=== PATIENT | male | born 1975 | race Caucasian/White ===

== ENCOUNTER → 2020-12-01 03:30 | Outpatient (CLI) | payer BC, SELFPAY ==
[2020-12-02 01:23] LABS: SARS-CoV-2 RNA PCR Negative
== END ==
PROVIDERS: PCP Physician Assistant Medical; Visit Provider Internal Medicine Gastroenterology
DX: Z01.812 Encounter for preprocedural laboratory examination (principal); Z20.822 Contact with and (suspected) exposure to COVID-19
CPT/HCPCS: C9803; U0003; U0005

== ENCOUNTER 2020-12-04 01:40 | Day surgery (SDC) | payer BC, SELFPAY ==
[2020-11-26 10:35] VITALS: BMI 25.1
[2020-12-04 10:03] VITALS: BP 114/85; PULSE 90; RESP 18; TEMP 36.1; O2SAT 100; BMI 24.3
[2020-12-04] MEDS: LACTATED RINGERS 1,000 ML 150 ML IV CONT (10:17)
--- NOTE | 2020-12-04 10:34 | WPDGICN ---
Assessment and Plan Assessment and plan (1) Nausea & vomiting: Code(s): R11.2 - Nausea with vomiting, unspecified Status: Acute Assessment and Plan: Patient with complains of frequent nausea vomiting for this reason EGD will be performed. Suspect this may be functional in nature. Trial of antacids appears prudent. Further recommendations will be given after endoscopy. (2) Diarrhea: Code(s): R19.7 - Diarrhea, unspecified Status: Acute Assessment and Plan: Patient has longstanding history of loose stools after eating. Suspect functional disease. Because of the chronicity of his symptoms a colonoscopy will be performed. Further recommendations will be given after endoscopy. GI Consult Note Consult date/time: 12/04/20 10:34 HPI: Geoffrey Marshall is a 44 year old male Presents for GI endoscopy. Patient reports that for several years he has had nausea vomiting and diarrhea. He has tried no specific medications to alleviate these symptoms. He reports diarrhea on almost a daily basis this is happened typically after eating. Typically has watery stools. He states that is very rare that he has a normal stool. He denies any fever. He denies any blood in his stools. He has never tried Kaopectate or Imodium. He states he had briefly tried fiber supplements several years ago but not for very long. He does not remember any change in his symptoms. His family history is noncontributory. Additionally patient complains of nausea vomiting. His states he will vomit in the evening shortly after eating. This occurs 2 or 3 times a week. Typically is just liquid but recur turns. He has never tried antacids. Additionally patient complains of back aches. Different body aches. Not particularly related to his bowel habits nor oral intake. Review of Systems Review of Systems: All systems reviewed & are unremarkable except as noted in HPI and below PMFSH Past Medical History Medical History (Updated 11/20/20 @ 10:10 by EDGAR Escalante) Diarrhea Nausea & vomiting Tobacco abuse Social History Social History (Updated 11/20/20 @ 09:07 by Maribell Garza CMA) Smoking packs per day: 1 Smoking cigarettes per day: 20.0 Smoking status: Current every day smoker Tobacco type: cigarettes Alcohol intake: current Drinks per week: 4 Alcohol use details: Beer Substance use: never Substance use type: does not use Living arrangements: with family Gender identity (if verbalized by the patient): Male Meds Home Medications and Allergies Home Medications Medication Instructions Recorded Confirmed Type No Home Medications 11/20/20 12/04/20 History Allergies Allergy/AdvReac Type Severity Reaction Status Date / Time No Known Allergies Allergy Verified 12/04/20 10:02 Vital Signs Vital Signs - 24 hr 12/04/20 10:03 Temperature 96.9 F L Pulse Rate 90 Respiratory Rate 18 Blood Pressure 114/85 Pulse Oximetry 100 Exam Narrative: Physical exam reveals patient be alert. Vital signs stable. HEENT exam is unremarkable. Patient is anicteric. Lungs are clear to auscultation and percussion. Heart is without murmur or extra sounds. Abdominal exam bowel sounds present soft nontender with no hepatosplenomegaly. Digital external rectal exam is normal.
--- NOTE | 2020-12-04 10:39 | P.PNAN_ITS ---
Anes - Initial Pre Proc Eval Procedure: Operation Date: 12/04/20 10:45 Proposed Procedures p Esophagogastroduodenoscopy & Colonoscopy - Eze De La Cruz MD Date/Time: 12/04/20 10:39 Surgeon: Eze De La Cruz MD Pre Op Diagnosis: diarrhea R19.7, nausea/vomiting R11.2 Patient Data Age: 44 Gender: M Height: 1.75 m Weight: 74.7 kg Last Vital Signs Temp 96.9 F L 12/04/20 10:03 Pulse 90 12/04/20 10:03 Resp 18 12/04/20 10:03 BP 114/85 12/04/20 10:03 Pulse Ox 100 12/04/20 10:03 Allergies Allergy/AdvReac Type Severity Reaction Status Date / Time No Known Allergies Allergy Verified 12/04/20 10:02 Home Medications Medication Instructions Recorded Confirmed Type No Home Medications 11/20/20 12/04/20 History Patient hx anesthesia problems: none Family hx anesthesia problems: none [facility] Past Medical History Medical History (Updated 11/20/20 @ 10:10 by ISABELA EscalanteN-C) Diarrhea Nausea & vomiting Tobacco abuse Social History Social History (Updated 11/20/20 @ 09:07 by Maribell Garza CMA) Smoking packs per day: 1 Smoking cigarettes per day: 20.0 Smoking status: Current every day smoker Tobacco type: cigarettes Alcohol intake: current Drinks per week: 4 Alcohol use details: Beer Substance use: never Substance use type: does not use Living arrangements: with family Gender identity (if verbalized by the patient): Male Anes - Eval Final PreProcedure Day of Procedure 12/04/20 10:39 Patient weight: normal Heart: regular rate and rhythm Lungs: clear to auscultation Airway: Mallampati scale class II Neurological: alert and oriented Last oral intake: >/= 8 hours ASA classification: II Emergent: no Anesthetic plan: proceed Anesthesia type and monitoring: general GIVS and standard monitoring Informed Consent: The patient's anesthetic plan and its attendant risks and benefits were discussed with the patient/family/POA. Questions were solicited and answers provided to the satisfaction of the patient/family/POA.
[2020-12-04 11:38] VITALS: BP 95/65; PULSE 80; RESP 20; O2SAT 96
[2020-12-04 11:48] VITALS: BP 95/64; PULSE 81; RESP 22; O2SAT 96
[2020-12-04 11:58] VITALS: BP 119/75; PULSE 70; RESP 18; O2SAT 100
[2020-12-04 12:08] VITALS: BP 119/84; PULSE 65; RESP 23; O2SAT 100
== END 2020-12-04 12:25 | disposition home or self-care (01) ==
PROVIDERS: PCP Physician Assistant Medical; Visit Provider Internal Medicine Gastroenterology
PROC: 0DJ08ZZ Inspection of Upper Intestinal Tract, Via Natural or Artificial Opening Endoscopic (ICD-10-PCS; CPT 43235; principal; 2020-12-04 10:45)
DX: R19.7 Diarrhea, unspecified (principal); R11.2 Nausea with vomiting, unspecified; K52.9 Noninfective gastroenteritis and colitis, unspecified; K63.5 Polyp of colon; K21.9 Gastro-esophageal reflux disease without esophagitis; K64.8 Other hemorrhoids; F17.210 Nicotine dependence, cigarettes, uncomplicated
CPT/HCPCS: 45385; 45380; 43239; 87081; 88305; 88313; J2704; J7120

== ENCOUNTER 2021-07-22 14:11 | Outpatient (CLI) | payer BC, SELFPAY ==
--- NOTE | ~2021-07-22 | CT_ITS ---
EXAMINATION: CT abdomen pelvis wo/w con DATE: 07/22/2021 15:03 INDICATION: Prostatitis, Chronic TECHNIQUE: Computed tomography (CT) of the abdomen and pelvis was performed without and with with 100 mL Omnipaque-350 intravenous contrast. Automated exposure control was employed. The dose-length prod uct was 897.58 mGy-cm. COMPARISON: 04/07/2017. FINDINGS: Lower thorax: Unremarkable. Liver: Normal. Biliary/Gallbladder: Gallbladder is absent. No bile duct dilation. Spleen: Normal. Pancreas: No mass or duct dilation. Adrenals:No mass. Kidneys: No mass, stone, or hydronephrosis. GI tract: Distal esophageal and gastric wall edema as can be seen in esophagitis/gastritis. Water den sity wall edema in the descending and sigmoid colon. No small or large bowel dilation. Normal appendi x. Mesentery/Peritoneum: No ascites, mass, or free air. Retroperitoneum: No mass. Pelvis: Pelvic organs are within normal limits. Bones/Soft Tissues: Soft tissues and body wall unremarkable. No acute osseous finding. Additional Findings: None. IMPRESSION: Stable descending and sigmoid colon wall edema as can be seen with infectious/inflammatory colitis. N o acute abdominopelvic process. Reviewed, dictated and finalized at location K. IMPRESSION: Stable descending and sigmoid colon wall edema as can be seen with infectious/i nflammatory colitis. No acute abdominopelvic process.
--- NOTE | ~2021-07-22 | XR_ITS ---
EXAM: XR abdomen/kub 1V HISTORY: PROSTATITIS COMPARISON: CT abdomen and pelvis 07/22/2021 FINDINGS: Clear lung bases. Cholecystectomy clips. Normal bowel gas pattern. No organomegaly. Arteri al and venous calcifications project over the pelvis. Regional bones and soft tissues normal for age. IMPRESSION: No acute obstruction or ileus. Reviewed, dictated and finalized at location K.
== END 2021-07-22 14:12 ==
LOC: MICIMG 14:13
PROVIDERS: Visit Provider Nurse Practitioner Adult Health
DX: N41.1 Chronic prostatitis (principal)
CPT/HCPCS: 74018; 74178; Q9967

== ENCOUNTER 2021-08-25 07:57 | Outpatient (CLI) | payer BC, SELFPAY ==
--- NOTE | ~2021-08-25 | XR_ITS ---
SMALL BOWEL SERIES ONLY INDICATION: Diarrhea. Right lower quadrant pain. TECHNIQUE: Serial plain films and fluoroscopic spot films are performed following oral demonstration of thin barium. COMPARISON: CT dated 07/22/2021 FINDINGS: Barium was followed sequentially through the small bowel. The mucosal pattern is unremarka ble. There is segmentation and flocculation of barium in the proximal small bowel. No evidence for st ricture, polyp, diverticula or obstruction of flow of contrast. Transit time is normal. IMPRESSION: 1: Segmentation and flocculation of barium in the proximal small bowel, suspicious for malabsorption syndrome. Reviewed, dictated and finalized at location A. IMPRESSION: 1: Segmentation and flocculation of barium in the proximal small bowel, suspic ious for malabsorption syndrome.
== END 2021-08-25 07:58 | disposition home or self-care (01) ==
LOC: ANHIMG 07:59
PROVIDERS: PCP Physician Assistant Medical; Visit Provider Nurse Practitioner Family
DX: R19.7 Diarrhea, unspecified (principal); R10.31 Right lower quadrant pain
CPT/HCPCS: 74250

== ENCOUNTER 2021-09-04 15:29 | Outpatient (CLI) | payer BC, SELFPAY ==
[2021-09-04 16:09] LABS: Hematocrit 50.6 % (42.0-52.0); Hemoglobin 16.5 g/dL (14.0-18.0); Mean Corpuscular HGB Conc 32.6 g/dl (32-36); Mean Corpuscular Hemoglobin 32.9 pg (26-34); Mean Corpuscular Volume 100.8 fl (80-100); Mean Platelet Volume 10.3 fl (7.4-10.4); Platelet Count Result 293 k/mm3 (150-375); Red Blood Count 5.02 M/mm3 (4.6-6.20); Red Cell Distribution Width 13.3 % (11.5-14.5)
[2021-09-04 16:39] LABS: Iron 73 ug/dL (49-181)
[2021-09-04 16:44] LABS: Alanine Aminotransferase 18 U/L (6-50); Albumin Level 4.3 g/dL (3.5-5.1); Alkaline Phosphatase 81 U/L (38-126); Anion Gap 7 mmol/L (8-16); Aspartate Amino Transferase 27 U/L (17-59); Bilirubin,Total 0.5 mg/dL (0.2-1.3); Blood Urea Nitrogen 11 mg/dL (9-20); Calcium 8.8 mg/dL (8.4-10.2); Carbon Dioxide 27 mmol/L (22-30); Chloride 109 mmol/L (98-107); Estimated Glomerular Filt Rate > 60; Glucose 115 mg/dL (65-110); Potassium 3.6 mmol/L (3.4-5.0); Sodium 143 mmol/L (137-145)
[2021-09-04 17:11] LABS: Percent Iron Saturation 20 % (20-50)
[2021-09-04 18:29] LABS: Folic Acid 5.5 ng/mL (2.76->20)
[2021-09-11 13:54] LABS: ANCA Screen Negative (Negative); Myeloperoxidase Ab <1.0 AI (<1.0); Proteinase-3 Ab <1.0 AI (<1.0); S cerevisiae Ab (IgA) 13.1 U (<=20.0); S cerevisiae Ab (IgG) 12.5 U (<=20.0)
[2021-09-13 15:26] LABS: Pancreatic Elastase, Stool 342 mcg/g
[2021-10-07 09:36] LABS: Gliadin AB, IgG <1.0 U/mL (<15.0); TTG IGA AB <1.0 U/mL (<15.0)
== END 2021-09-04 15:30 | disposition home or self-care (01) ==
LOC: ANHLAB 15:31
PROVIDERS: PCP Physician Assistant Medical; Visit Provider Nurse Practitioner Family
DX: R11.2 Nausea with vomiting, unspecified (principal); R19.7 Diarrhea, unspecified; R93.89 Abnormal findings on diagnostic imaging of other specified body structures
CPT/HCPCS: 36415; 80053; 82607; 82653; 82728; 82746; 83516; 83540; 83550; 85027; 86036; 86140; 86255; 86671

== ENCOUNTER 2021-09-05 11:36 | Outpatient (CLI) | payer BC, SELFPAY ==
[2021-09-10 19:51] LABS: Fecal Fat, Ql Normal (Normal)
[2021-09-14 21:57] LABS: Calprotectin, Stool 59 mcg/g
== END 2021-09-05 11:37 | disposition home or self-care (01) ==
LOC: ANHLAB 11:38
PROVIDERS: PCP Physician Assistant Medical; Visit Provider Nurse Practitioner Family
DX: R11.2 Nausea with vomiting, unspecified (principal); R19.7 Diarrhea, unspecified; R93.89 Abnormal findings on diagnostic imaging of other specified body structures
CPT/HCPCS: 82705; 83993

== ENCOUNTER 2022-05-06 13:35 | Outpatient (CLI) | payer BC, SELFPAY ==
--- NOTE | ~2022-05-06 | CT_ITS ---
Non-contrast CT scan of the Abdomen and Pelvis Clinical indication: Abdominal pain Technique: 5 mm axial scans were obtained through the abdomen and pelvis without intravenous or oral contrast. Dose reduction technique was used on this scan by utilizing automated exposure control and iterative reconstruction technique. The dose-length product (DLP) was 346.01 mGy-cm. COMPARISON: 07/22/2021 Findings: Images through the lung bases reveal no abnormalities. There is no evidence of renal or ureteral calculi. The kidneys and the ureters are nondilated. The liver, spleen, pancreas, and adrenals appear normal. Cholecystectomy clips are present. There is no aortic aneurysm. There is no evidence of bowel obstruction. Normal appendix. Images through the pelvis were performed. There is no evidence of ascites or lymphadenopathy. Urinary bladder unremarkable. Prostate gland and seminal vesicles are unremarkable. Impression: No significant abnormality seen. Reviewed, dictated and finalized at [facility]. AND [employer] DIRECTOR Impression: No significant abnormality seen.
--- NOTE | ~2022-05-06 | XR_ITS ---
Supine and upright views of the abdomen Clinical history: Abdominal pain COMPARISON: 08/25/2021 Findings: Bowel gas pattern is nonspecific. No evidence for obstruction or free air. No abnormal mass lesion or calcification is seen. Cholecystectomy clips noted. Stable calcified pelvic phleboliths. O sseous structures are intact. Impression: No significant abnormality is seen. Reviewed, dictated and finalized at [facility]. ER SINGLE Impression: No significant abnormality is seen.
== END 2022-05-06 13:36 ==
PROVIDERS: PCP Nurse Practitioner Adult Health; Visit Provider Nurse Practitioner Adult Health
DX: R10.84 Generalized abdominal pain (principal)
CPT/HCPCS: 74018; 74176

== ENCOUNTER 2022-08-28 08:10 | Inpatient (IN) | payer BC, SELFPAY ==
[2022-08-28] VITALS (16 sets, daily range): BP systolic 114–128; BP diastolic 61–85; PULSE 72–95; RESP 13–20; TEMP 36.6–37.1; O2SAT 92–100
--- NOTE | ~2022-08-28 | CT_ITS ---
EXAMINATION: CT abdomen pelvis w con INDICATION: Abdominal pain TECHNIQUE: Computed tomographic images of the abdomen and pelvis were obtained after the administrati on of 100 cc of Omnipaque 350 intravenous contrast. The dose-length product (DLP) was 334.99 mGy-cm. Automated exposure control and iterative reconstruction technique were employed. COMPARISON: 05/06/2022 FINDINGS: The lung bases are clear. The heart size is normal. The gallbladder is surgically absent. T here is mild enlargement of the common bile duct and central intrahepatic ducts which is likely due t o post cholecystectomy state. The liver, spleen, pancreas, and adrenal glands are normal. The kidneys are unremarkable. There is calcified atherosclerosis of the aorta and many of the other arteries. No pathologically enlarged abdominal or pelvic lymph nodes are identified. There is wall thickening of the distal descending colon. A few colonic diverticula are noted. There are inflammatory change and s mall foci of extraluminal gas adjacent to the distal descending/proximal sigmoid colon. There is a sm all amount of adjacent inflammatory fluid without rim enhancing fluid collection. The appendix is nor mal. There are no dilated loops of bowel. IMPRESSION: 1. Perforated diverticulitis of the distal descending/proximal sigmoid colon without abscess. Reviewed, dictated and finalized at location A. IMPRESSION: 1. Perforated diverticulitis of the distal descending/proximal sigmoid colon wi thout abscess.
[2022-08-28 08:29] LABS: Basophils Absolute Auto 0.1 K/mm3 (0.0-0.1); Basophils Percent Auto 0.4 % (0.2-1.2); Eosinophils Absolute Auto 0.2 K/mm3 (0-0.3); Eosinophils Percent Auto 0.7 % (0-4.4); Hematocrit 54.1 % (42.0-52.0); Hemoglobin 18.1 g/dL (14.0-18.0); Immature Granulocyte Absolute 0.14 K/mm3 (0.00-0.031); Immature Granulocyte Percent A 0.7 % (0-0.5); Lymphocytes Absolute Auto 2.32 K/mm3 (0.9-3.2); Lymphocytes Percent Auto 11.6 % (18.3-44.2); Mean Corpuscular HGB Conc 33.5 g/dl (32-36); Mean Corpuscular Hemoglobin 32.8 pg (26-34); Mean Corpuscular Volume 98.2 fl (80-100); Mean Platelet Volume 9.9 fl (7.4-10.4); Monocytes Absolute Auto 1.4 K/mm3 (0.1-0.6); Monocytes Percent Auto 7.1 % (2.6-8.5); Neutrophils Absolute Auto 15.9 K/mm3 (1.3-6.7); Neutrophils Percent Auto 79.5 % (45.5-73.1); Platelet Count Result 286 k/mm3 (150-375); Red Blood Count 5.51 M/mm3 (4.6-6.20); Red Cell Distribution Width 12.9 % (11.5-14.5)
--- NOTE | 2022-08-28 08:33 | ED.ABDPAIN ---
HPI - Abdominal Pain General Chief Complaint: Abdominal Pain Stated Complaint: left lower abdominal pain x several years Time Seen by Provider: 08/28/22 08:33 Source: patient Mode of arrival: ambulatory Limitations: no limitations History of Present Illness HPI narrative: 46 years old white male came to the emergency room by private car with his significant other complaining of lower abdominal pain mainly on the left side of her for the last few years without specific diagnosis got worse since yesterday afternoon. Patient reports eating sometimes make it worse, denies any relieving factors. History of cholecystectomy. He denies any fever, chills, nausea, vomiting, diarrhea or constipation or urinary symptoms Related Data Allergies Allergy/AdvReac Type Severity Reaction Status Date / Time No Known Allergies Allergy Verified 08/28/22 08:11 Review of Systems Review of Systems: All systems reviewed & are unremarkable except as noted in HPI and below PMFSH Past Medical History Medical History Diarrhea FH: cholecystectomy GERD (gastroesophageal reflux disease) Nausea & vomiting Right lower quadrant pain Tobacco abuse Social History Social History Smoking packs per day: 1.5 Smoking cigarettes per day: 30.0 Smoking status: Current every day smoker Tobacco type: cigarettes Alcohol intake: current Drinks per week: 4 Alcohol use details: Beer Substance use: never Substance use type: does not use Lack of Transportation: No Lack of Food: Never True Current Housing: I Have Housing Concerned About Future Housing: No Difficulty Paying Gas/Electric Bills: No Difficulty Paying for Meds: No Currently Unemployed: No Difficulty w/ Childcare or Family Care: No Living arrangements: with family Occupation/Education: occupation Gender identity (if verbalized by the patient): Male Exam Narrative: General appearance: Well-developed, well-nourished Skin: Normal color Head: Normocephalic, nontraumatic Eyes: Clear conjunctiva ENT: Oropharynx normal, ears normal, nose normal Neck: Supple, nontender Chest and respiratory: Airway patent, no respiratory distress, no accessory muscle use Heart: Regular rate/rhythm Abdomen: Soft, severe tenderness left lower quadrant, slight guarding and rebound no organomegaly, quiet bowel sounds Vascular: Normal peripheral pulses, normal capillary refill. Musculoskeletal: Normal range of motion, nontender back Neurologic: Alert and oriented ?3, C[employer]ODIAL FOREM[employer] is normal as tested, no gross motor deficit Course Consultations Consultation #1: DR RUIZ Date: 08/28/22 Time: 10:06 Consultation #2: DR WHEELER Date: 08/28/22 Time: 10:08 Vital Signs Vital signs: Vital Signs Temperature 36.6 C 08/28/22 08:11 Pulse Rate 95 08/28/22 08:11 Respiratory Rate 18 08/28/22 08:11 Blood Pressure 114/69 08/28/22 08:11 Pulse Oximetry 99 08/28/22 08:11 Oxygen Delivery Room Air 08/28/22 08:11 Temperature 36.6 C 08/28/22 08:11 Pulse Rate 86 08/28/22 09:00 Respiratory Rate 18 08/28/22 09:00 Blood Pressure 121/80 08/28/22 08:46 Pulse Oximetry 99 08/28/22 08:11 Oxygen Delivery Room Air 08/28/22 08:11 MDM - Abdominal Pain MDM Narrative Medical decision making narrative: Patient presents with intermittent left lower quadrant pain for years got worse yesterday afternoon. Physical examination showed severe tenderness left lower quadrant with guarding and rebound. Differential diagnosis include diverticulitis, constipation, urinary tract infection, IBS. W
[2022-08-28 08:55] LABS: Alanine Aminotransferase 25 U/L (6-50); Albumin Level 4.1 g/dL (3.5-5.1); Alkaline Phosphatase 77 U/L (38-126); Anion Gap 4 mmol/L (8-16); Aspartate Amino Transferase 28 U/L (17-59); Bilirubin,Total 1.4 mg/dL (0.2-1.3); Blood Urea Nitrogen 11 mg/dL (9-20); Calcium 9.1 mg/dL (8.4-10.2); Carbon Dioxide 29 mmol/L (22-30); Chloride 104 mmol/L (98-107); Estimated CRCL calculation 80 ml/min; Estimated Glomerular Filt Rate > 60; Glucose 117 mg/dL (65-110); Lipase 41 U/L (23-300); Potassium 3.7 mmol/L (3.4-5.0); Sodium 137 mmol/L (137-145)
[2022-08-28] MEDS: HYDROmorphone HCL INJ (*CRX) 1 MG/ML SYR 0.5 MG IV PUSH ×5 (09:03→20:14)
[2022-08-28] MEDS: ONDANSETRON INJ 4 MG/2 ML VIAL IV PUSH ×2 (09:03→16:48)
[2022-08-28] MEDS: SODIUM CHLORIDE 0.9% IV 1,000 ML 999 ML IV CONT (09:04)
[2022-08-28 09:24] LABS: Appearance Urine Clear (Clear); Bacteria Urine None Seen /hpf; Bilirubin Urine 1+ (Negative); Blood Urine Negative (Negative); Color Urine Dark Yellow (Yellow); Glucose Urine UA Negative (Negative); Ketones Urine Trace mg/dL (Negative); Leukocyte Esterase Ur 1+ LEU/UL (Negative); Mucus Urine Present /lpf; Nitrate Urine Negative (Negative); Non Pathogenic Casts 0-2; Protein Urine 1+ mg/dL (Negative); Specific Grav Ur 1.025 (1.001-1.035); Squamous Epithelial Cell Urine None seen /hpf (Few); WBC Urine 0-5 /hpf
[2022-08-28 10:17] LABS: Add Urine Microscopic? YES
[2022-08-28] MEDS: metroNIDAZOLE 500 MG/ISO 100ML 500 MG/100 ML BAG 100 MG IVPB ×2 (10:21→17:23)
--- NOTE | 2022-08-28 10:34 | PC.NURSE ---
Dr. Lugo at bedside.
--- NOTE | 2022-08-28 10:49 | PM.CNGS ---
Assessment and Plan Assessment and plan (1) Diverticulitis of colon with perforation: Code(s): K57.20 - Diverticulitis of large intestine with perforation and abscess without bleeding Status: Acute Assessment and Plan: I have reviewed the CT and discussed the findings with the patient. He has evidence of diverticulitis with micro perforation. There does not appear to be any sign of distant free intraperitoneal air or abscess formation. He is currently hemodynamically stable. I have discussed options of proceeding with emergent surgery which would require a temporary ostomy verses continuing bowel rest with IV antibiotics. Given the CT findings and the patient's clinical picture, attempted nonoperative management is possible. Will continue to monitor with serial abdominal exams and follow-up labs. If patient is showing worsening signs or symptoms, may have to consider proceeding with emergent surgery. Patient voiced his understanding. (2) Tobacco abuse: Code(s): Z72.0 - Tobacco use Status: Acute History of Present Illness Consult details Consult date: 08/29/22 Reason for consult: other (Diverticulitis) Requesting physician: Kelli Kessler MD Narrative: This is a 46-year-old man who I am asked to see for perforated diverticulitis. He presented to the emergency department this morning with left lower quadrant abdominal pain that started yesterday afternoon. His pain was worsening and even after dinner this was continuing to become more and more severe. He has never had pain this severe before. He does have a longstanding history of abdominal problems over the past 2-3 years. He frequently has diarrhea and occasionally has nausea and vomiting. He had his gallbladder removed 2-3 years ago but was having symptoms like this prior to his gallbladder surgery. He has been evaluated by Gastroenterology and has had an EGD, colonoscopy, and small-bowel follow-through. He has had celiac panel and IBD panel performed previously which were negative. He denies a prior history of diverticulitis. He denies any recent fevers. His pain is predominantly in the left lower quadrant and denies any significant pain elsewhere. Review of Systems Review of Systems: All systems reviewed & are unremarkable except as noted in HPI and below Eyes: Eyes: Denies change in vision ENT: Denies hearing loss, Denies neck pain and Denies sore throat Cardiovascular: Cardiovascular: Denies chest pain and Denies dyspnea Respiratory: Respiratory: Denies cough, Denies dyspnea and Denies wheezing Genitourinary: Genitourinary: Denies hematuria and Denies dysuria Musculoskeletal: Musculoskeletal: Denies arthralgias, Denies joint swelling and Denies neck pain Allergic/Immunologic: Allergic/Immunologic: Denies wheezing [facility] Past Medical History Medical History (Updated 08/28/22 @ 13:51 by Amina Gasca PA-C) Gastroesophageal reflux Tobacco abuse Surgical History Surgical History (Updated 08/28/22 @ 13:49 by Amina Gasca PA-C) History of colonoscopy with polypectomy (11/2020) Benign sigmoid colon polyp, internal hemorrhoids. History of esophagogastroduodenoscopy (11/2020) Distal esophagitis consistent with GE reflux. History of laparoscopic cholecystectomy Family History Family History (Updated 08/28/22 @ 20:47 by Amina Gasca PA-C) Other Family history non-contributory Social History Social History (Updated 08/28/22 @ 20:48 by Amina Gasca PA-C) Social History: Surrogate medical decision maker: Sherrie Carson, friend. Code status: Full code. Smoking packs per day: 1.5 Smoking cigarettes per day: 30.0 Smoking status: Current every day smoker Tobacco type: cigarettes Alcohol intake: current Drinks per week: 4 Alcohol use details: Beer Substance use: never Substance use type: does not use Lack of Transportation: No Lack of Food: Never True Current Housing: I Have
--- NOTE | 2022-08-28 11:36 | ADMGEN ---
This patient, Geoffrey Marshall, was admitted to Medical Room [facility] [id number]. Patient/family oriented to hospital policies and general routines including ID bracelet, bed and alarms, visiting hours, pain management, procedures, bathroom and other care routines, personal items, smoking policy, room service/diet, and visiting hours. Information on how to activate the Rapid Response Team has been discussed. Patient/Family are encouraged to report perceived risks to care and to ask questions if they do not understand what they are told or what they should do.
--- NOTE | 2022-08-28 13:46 | PM.IMHP ---
H&P: HPI History of Present Illness Date/Time: 08/28/22 14:15 Chief Complaint: Abdominal pain. Narrative: This is a 46-year-old male smoker with history of GERD and colon polyps who presented to the emergency department via private vehicle from home for evaluation of abdominal pain. He endorses has had GI issues over the past couple of years with frequent diarrhea, occasional nausea and vomiting, and generalized abdominal discomfort. A couple of years ago he had his gallbladder removed but he continues to have these symptoms. He has been evaluated by Dr. De La Cruz and had an EGD and colonoscopy done in November 2020 which revealed GE reflux and internal hemorrhoids respectively; he also had benign sigmoid colon polyp removed. There was no mention of diverticulosis. Celiac and IBD panels were negative. In any event he once again starting having abdominal discomfort yesterday afternoon and it became more severe following dinner. It seems to be centered in the left lower quadrant and it is associated with nausea and vomiting. The pain is worse with palpation and movement. No significant alleviating factors. He denies fever, chills, sweats, chest pain, shortness a breath, hematemesis, melena, hematochezia, hematuria, dysuria, and flank pain. On arrival to the emergency department he was afebrile with stable vital signs. Pertinent labs include a WBC count of 20.0, hemoglobin 18.1, and a relatively unremarkable CMP. Urine showed 1+ protein, trace ketones, 1+ leukocyte esterase, and [address] of the abdomen pelvis showed perforated diverticulitis of the distal descending/proximal sigmoid colon without abscess. He was started on levofloxacin and metronidazole and he has been admitted in this setting for further treatment and surgery consultation. Review of Systems Review of Systems: Twelve systems were reviewed and are negative except for as per HPI. [facility] Past Medical History Medical History (Updated 08/28/22 @ 13:51 by Amina Gasca PA-C) Gastroesophageal reflux Tobacco abuse Surgical History Surgical History (Updated 08/28/22 @ 13:49 by Amina Gasca PA-C) History of colonoscopy with polypectomy (11/2020) Benign sigmoid colon polyp, internal hemorrhoids. History of esophagogastroduodenoscopy (11/2020) Distal esophagitis consistent with GE reflux. History of laparoscopic cholecystectomy Family History Family History (Updated 08/28/22 @ 20:47 by Amina Gasca PA-C) Other Family history non-contributory Social History Social History (Updated 08/28/22 @ 20:48 by Amina Gasca PA-C) Social History: Surrogate medical decision maker: Sherrie Alli, friend. Code status: Full code. Smoking packs per day: 1.5 Smoking cigarettes per day: 30.0 Smoking status: Current every day smoker Tobacco type: cigarettes Alcohol intake: current Drinks per week: 4 Alcohol use details: Beer Substance use: never Substance use type: does not use Lack of Transportation: No Lack of Food: Never True Current Housing: I Have Housing Concerned About Future Housing: No Difficulty Paying Gas/Electric Bills: No Difficulty Paying for Meds: No Currently Unemployed: No Education: High School Diploma/GED Difficulty w/ Childcare or Family Care: No Additional living arrangements comments: Lives in [place]. Spiritual care concerns: No Meds Home Medications and Allergies Home Medications Medication Instructions Recorded Confirmed Type No Home Medications 08/28/22 08/28/22 History Allergies Allergy/AdvReac Type Severity Reaction Status Date / Time No Known Allergies Allergy Verified 08/28/22 08:11 Vital Signs Vital Signs - 24 hr 08/28/22 08:11 08/28/22 08:23 08/28/22 08:46 Temperature 98 F Pulse Rate 95 93 Respiratory Rate 18 14 Blood Pressure 114/69 121/80 Pulse Oximetry 99 Oxygen Delivery Room Air 08/28/22 08:58 08/28/22 09:00 08/28/22 09:27 Te
[2022-08-28] MEDS: SODIUM CHLORIDE 0.9% IV 1,000 ML 150 ML IV CONT ×2 (14:23→23:00)
[2022-08-28] MEDS: HYDROmorphone HCL INJ (*CRX) 1 MG/ML SYR IV PUSH (23:57)
[2022-08-28] MEDS: SODIUM CHLORIDE 0.9% IV 1,000 ML 100 ML IV CONT (23:58)
[2022-08-29] MEDS: metroNIDAZOLE 500 MG/ISO 100ML 500 MG/100 ML BAG 100 MG IVPB ×3 (01:36→18:09)
[2022-08-29] MEDS: HYDROmorphone HCL INJ (*CRX) 1 MG/ML SYR IV PUSH ×2 (03:01→07:32)
[2022-08-29 05:14] LABS: Hematocrit 51.3 % (42.0-52.0); Hemoglobin 16.4 g/dL (14.0-18.0); Mean Corpuscular Volume 103.2 fl (80-100); Platelet Count Result 283 k/mm3 (150-375); Red Blood Count 4.97 M/mm3 (4.6-6.20); Red Cell Distribution Width 12.8 % (11.5-14.5); White Blood Count 19.3 K/mm3 (4.5-10.0)
[2022-08-29 05:24] LABS: Alanine Aminotransferase 19 U/L (6-50); Albumin Level 3.7 g/dL (3.5-5.1); Alkaline Phosphatase 65 U/L (38-126); Anion Gap 5 mmol/L (8-16); Aspartate Amino Transferase 24 U/L (17-59); Bilirubin,Total 1.4 mg/dL (0.2-1.3); Blood Urea Nitrogen 9 mg/dL (9-20); Calcium 8.4 mg/dL (8.4-10.2); Carbon Dioxide 31 mmol/L (22-30); Chloride 101 mmol/L (98-107); Estimated CRCL calculation 73 ml/min; Estimated Glomerular Filt Rate > 60; Glucose 83 mg/dL (65-110); Sodium 137 mmol/L (137-145)
[2022-08-29 06:00] VITALS: BP 127/67; PULSE 70; RESP 20; TEMP 36.9; O2SAT 95
[2022-08-29] MEDS: SODIUM CHLORIDE 0.9% IV 1,000 ML 100 ML IV CONT ×2 (06:11→20:50)
[2022-08-29 07:45] VITALS: O2SAT 93
--- NOTE | 2022-08-29 07:49 | PM.IMPN ---
Progress Note: A&P Assessment and Plan (1) Diverticulitis of colon with perforation: Code(s): K57.20 - Diverticulitis of large intestine with perforation and abscess without bleeding Status: Acute Assessment and Plan: CT shows evidence of diverticulitis with micro perforation and Dr. Lugo recommends conservative management initially to include bowel rest and IV antibiotics (levofloxacin and metronidazole). Analgesics and antiemetics available as needed. 08/29: ADAT, FLD for dinner, anticipate d/c home tomorrow on high fiber diet if tolerating po well and pain cont to improve (2) Dehydration: Code(s): E86.0 - Dehydration Status: Acute Assessment and Plan: Continue IV fluid rehydration (3) Tobacco abuse: Code(s): Z72.0 - Tobacco use Status: Acute Assessment and Plan: Smoking cessation is encouraged. Requesting nicotine patch, ordered Plan DVT prophylaxis with SCDs GI prophylaxis not indicated Code status full code Subjective Date/time seen: 08/29/22 07:49 Interval history: No overnight events noted. No chest pain or shortness of breath. No nausea, vomiting or diarrhea. No fevers or chills. Pain much improved. Eager to go home, requesting nicotine patch. Review of Systems Review of Systems: 12 point review of systems was assessed and was negative except as noted in the HPI Exam Narrative: General: No acute distress, alert and oriented per baseline HEENT: Atraumatic, normocephalic, mucous membranes moist CV: Regular rate and rhythm, S1, S2 Lungs: Clear to auscultation bilaterally, no rales or crackles noted, no wheezes, good air entry Abdomen: Soft, TTP LLQ, nondistended Extremities: Normal to inspection Skin: No rashes noted, no lesions or wounds seen Psych: Irritable, labile mood Objective Data Vital Signs Vital Signs: Vital Signs - 24 hr 08/28/22 08:11 08/28/22 08:23 08/28/22 08:46 Temperature 98 F Pulse Rate 95 93 Respiratory Rate 18 14 Blood Pressure 114/69 121/80 Pulse Oximetry 99 Oxygen Delivery Room Air 08/28/22 08:58 08/28/22 09:00 08/28/22 09:27 Temperature Pulse Rate 87 86 73 Respiratory Rate 13 18 13 Blood Pressure Pulse Oximetry Oxygen Delivery 08/28/22 09:35 08/28/22 09:45 08/28/22 10:01 Temperature Pulse Rate 72 77 74 Respiratory Rate 18 16 17 Blood Pressure 115/61 Pulse Oximetry Oxygen Delivery 08/28/22 10:02 08/28/22 10:18 08/28/22 10:36 Temperature Pulse Rate 79 82 79 Respiratory Rate 16 20 16 Blood Pressure Pulse Oximetry Oxygen Delivery 08/28/22 10:58 08/28/22 11:06 08/28/22 14:00 Temperature 98.2 F 98.2 F Pulse Rate 84 84 74 Respiratory Rate 18 16 18 Blood Pressure 120/78 128/85 Pulse Oximetry 100 100 Oxygen Delivery 08/28/22 20:16 08/28/22 20:00 08/29/22 06:00 Temperature 98.8 F 98.4 F Pulse Rate 80 70 Respiratory Rate 18 20 Blood Pressure 116/68 127/67 Pulse Oximetry 92 95 Oxygen Delivery Room Air 08/29/22 07:45 Temperature Pulse Rate Respiratory Rate Blood Pressure Pulse Oximetry 93 Oxygen Delivery Room Air Intake/Output Intake/Output: Intake & Output 08/26/22 08/27/22 08/28/22 08/29/22 23:59 23:59 23:59 23:59 Intake Total 3200 1100 Balance 3200 1100 Meds/Results Medications: Active Medications Generic Name Dose Route Start Last Admin Trade Name Freq PRN Reason Stop Dose Admin Hydromorphone HCl 1 mg 08/28/22 23:34 08/29/22 07:32 Hydromorphone Hcl Inj (*Crx) 1 Mg/Ml Syr IV PUSH 1 mg Q3H PRN Administration Pain Rated 7-10 Metronidazole 500 mg in 100 mls @ 100 mls/hr 08/28/22 18:00 08/29/22 02:40 Flagyl 500 Mg/Iso Soln 100 Ml IVPB Infused Q8H LUIS Infusion Levofloxacin/Dextrose 750 mg in 150 mls @ 100 mls/hr 08/29/22 09:00 Levaquin 750 Mg/D5w 150 Ml IVPB Q24H LUIS Sodium Chloride 1,000 mls @ 100 mls/hr
--- NOTE | 2022-08-29 09:28 | PM.PNGS ---
Progress Note: A&P Assessment and Plan (1) Diverticulitis of colon with perforation: Code(s): K57.20 - Diverticulitis of large intestine with perforation and abscess without bleeding Status: Acute Assessment and Plan: Will start clear liquids Continue IV Levaquin and Flagyl Will plan for collection systems administrator eval tomorrow to discuss low fiber and high fiber diets (2) Tobacco abuse: Code(s): Z72.0 - Tobacco use Status: Acute Subjective Subjective Date/Time Seen: 08/29/22 09:28 Interval history: Feeling a little better today. Pain easier to manage. Passing flatus. Exam GI: Inspection: non-distended GI Palp: Yes Soft to palpation, Yes Tenderness to palpation present (GI) (LLQ), Yes Guarding due to palpation present (GI) (LLQ) and No Rebound tenderness present Objective Data Vital Signs Vital Signs: Vital Signs - 24 hr 08/28/22 09:35 08/28/22 09:45 08/28/22 10:01 Temperature Pulse Rate 72 77 74 Respiratory Rate 18 16 17 Blood Pressure 115/61 Pulse Oximetry Oxygen Delivery 08/28/22 10:02 08/28/22 10:18 08/28/22 10:36 Temperature Pulse Rate 79 82 79 Respiratory Rate 16 20 16 Blood Pressure Pulse Oximetry Oxygen Delivery 08/28/22 10:58 08/28/22 11:06 08/28/22 14:00 Temperature 36.8 C 36.8 C Pulse Rate 84 84 74 Respiratory Rate 18 16 18 Blood Pressure 120/78 128/85 Pulse Oximetry 100 100 Oxygen Delivery 08/28/22 20:16 08/28/22 20:00 08/29/22 06:00 Temperature 37.1 C 36.9 C Pulse Rate 80 70 Respiratory Rate 18 20 Blood Pressure 116/68 127/67 Pulse Oximetry 92 95 Oxygen Delivery Room Air 08/29/22 07:45 08/29/22 08:21 Temperature Pulse Rate Respiratory Rate Blood Pressure Pulse Oximetry 93 Oxygen Delivery Room Air Room Air Intake/Output Intake/Output: Intake & Output 08/26/22 08/27/22 08/28/22 08/29/22 23:59 23:59 23:59 23:59 Intake Total 3200 1100 Balance 3200 1100 Meds/Results Medications: Active Medications Generic Name Dose Route Start Last Admin Trade Name Freq PRN Reason Stop Dose Admin Acetaminophen 1,000 mg 08/29/22 09:30 Acetaminophen 500 Mg Tablet PO Q6H LUIS Hydromorphone HCl 1 mg 08/28/22 23:34 08/29/22 07:32 Hydromorphone Hcl Inj (*Crx) 1 Mg/Ml Syr IV PUSH 1 mg Q3H PRN Administration Pain Rated 7-10 Metronidazole 500 mg in 100 mls @ 100 mls/hr 08/28/22 18:00 08/29/22 02:40 Flagyl 500 Mg/Iso Soln 100 Ml IVPB Infused Q8H LUIS Infusion Levofloxacin/Dextrose 750 mg in 150 mls @ 100 mls/hr 08/29/22 09:00 08/29/22 08:21 Levaquin 750 Mg/D5w 150 Ml IVPB 100 mls/hr Q24H LUIS Administration Sodium Chloride 1,000 mls @ 100 mls/hr 08/28/22 10:15 08/29/22 06:11 Normal Saline Iv IV CONT 100 mls/hr .Q10H LUIS Administration Ondansetron HCl 4 mg 08/28/22 10:12 08/28/22 16:48 Ondansetron Inj 4 Mg/2 Ml Vial IV PUSH 4 mg Q4H PRN Administration Nausea Oxycodone HCl 5 mg 08/29/22 09:26 Oxycodone Hcl (*Crx) 5 Mg Tab Ir PO Q4H PRN Pain Rated 4-6 Radiology Results: ITS Impressions Abdomen/Pelvis CT 08/28/22 09:43 IMPRESSION: 1. Perforated diverticulitis of the distal descending/proximal sigmoid colon without abscess. Labs Labs: Laboratory Results - last 24 hr 08/28/22 08/29/22 09:04 04:53 WBC 19.3 H RBC 4.97 Hgb 16.4 Hct 51.3 MCV 103.2 H D MCH 33.0 MCHC 32.0 RDW 12.8 Plt Count 283 MPV 10.0 Sodium 137 Potassium 4.0 Chloride 101 Carbon Dioxide 31 H Anion Gap 5 L BUN 9 Creatinine 1.10 Estim Creat Clear Calc 73 Estimated GFR > 60 Glucose 83 Calcium 8.4 Magnesium 2.0 Total Bilirubin 1.4 H AST 24 ALT 19 Alkaline Phosphatase 65 Total Protein 7.0 Albumin 3.7 Urine Color Dark yellow Urine Appearance Clear Urine pH 8.0 Ur Specific [place] 1.025 Urine Protein 1+ H Urine Glucose (UA) Negative Urine Keto
[2022-08-29] MEDS: ACETAMINOPHEN 500 MG TABLET 1000 MG PO ×3 (10:27→20:51)
[2022-08-29] MEDS: NICOTINE (*PBKC) 21 MG PATCH 1 PATCH TRANSDERM (15:09)
[2022-08-29] MEDS: oxyCODONE HCL (*CRX) 5 MG TAB IR PO ×2 (15:12→20:52)
[2022-08-29 15:19] VITALS: BP 146/80; PULSE 67; RESP 17; TEMP 36.4; O2SAT 100
[2022-08-29 20:22] VITALS: BP 141/63; PULSE 81; RESP 20; TEMP 36.7; O2SAT 97
[2022-08-30] MEDS: ACETAMINOPHEN 500 MG TABLET 1000 MG PO ×4 (02:12→17:37)
[2022-08-30] MEDS: metroNIDAZOLE 500 MG/ISO 100ML 500 MG/100 ML BAG 100 MG IVPB ×3 (02:13→17:39)
[2022-08-30] MEDS: oxyCODONE HCL (*CRX) 5 MG TAB IR PO ×4 (02:13→20:16)
[2022-08-30 06:00] VITALS: BP 142/73; PULSE 66; RESP 20; TEMP 36.7; O2SAT 98
[2022-08-30 06:01] LABS: Basophils Absolute Auto 0.1 K/mm3 (0.0-0.1); Basophils Percent Auto 0.3 % (0.2-1.2); Eosinophils Absolute Auto 0.2 K/mm3 (0-0.3); Eosinophils Percent Auto 0.9 % (0-4.4); Hematocrit 48.5 % (42.0-52.0); Hemoglobin 15.9 g/dL (14.0-18.0); Immature Granulocyte Absolute 0.14 K/mm3 (0.00-0.031); Immature Granulocyte Percent A 0.7 % (0-0.5); Lymphocytes Absolute Auto 1.89 K/mm3 (0.9-3.2); Lymphocytes Percent Auto 9.2 % (18.3-44.2); Mean Corpuscular HGB Conc 32.8 g/dl (32-36); Mean Corpuscular Hemoglobin 32.7 pg (26-34); Mean Corpuscular Volume 99.8 fl (80-100); Mean Platelet Volume 9.8 fl (7.4-10.4); Monocytes Absolute Auto 1.7 K/mm3 (0.1-0.6); Monocytes Percent Auto 8.1 % (2.6-8.5); Neutrophils Absolute Auto 16.6 K/mm3 (1.3-6.7); Neutrophils Percent Auto 80.8 % (45.5-73.1); Platelet Count Result 254 k/mm3 (150-375); Red Blood Count 4.86 M/mm3 (4.6-6.20); Red Cell Distribution Width 12.5 % (11.5-14.5); White Blood Count 20.6 K/mm3 (4.5-10.0)
[2022-08-30] MEDS: SODIUM CHLORIDE 0.9% IV 1,000 ML 100 ML IV CONT (06:01)
[2022-08-30 06:13] LABS: Alanine Aminotransferase 18 U/L (6-50); Albumin Level 3.5 g/dL (3.5-5.1); Alkaline Phosphatase 67 U/L (38-126); Anion Gap 7 mmol/L (8-16); Aspartate Amino Transferase 28 U/L (17-59); Blood Urea Nitrogen 6 mg/dL (9-20); Carbon Dioxide 26 mmol/L (22-30); Chloride 102 mmol/L (98-107); Estimated CRCL calculation 88 ml/min; Estimated Glomerular Filt Rate > 60; Glucose 87 mg/dL (65-110); Potassium 3.9 mmol/L (3.4-5.0); Sodium 135 mmol/L (137-145)
[2022-08-30] MEDS: polyethylene glycoL 3350 17 GM POWD.PACK PO (08:28)
--- NOTE | 2022-08-30 08:38 | PM.IMPN ---
Progress Note: A&P Assessment and Plan (1) Diverticulitis of colon with perforation: Code(s): K57.20 - Diverticulitis of large intestine with perforation and abscess without bleeding Status: Acute Assessment and Plan: CT shows evidence of diverticulitis with micro perforation and Dr. Lugo recommends conservative management initially to include bowel rest and IV antibiotics (levofloxacin and metronidazole). Analgesics and antiemetics available as needed. Long history of recurrent abdominal pain, concerning for recurrent diverticulitis episodes and daily bouts of diarrhea. Prior UGI/SBFT concerning for malabsorption syndrome. 08/30: Pain worsened, cont FLD for now, recheck CBC this afternoon much improved, CRP, PCT checked today, recheck tomorrow (2) Dehydration: Code(s): E86.0 - Dehydration Status: Acute Assessment and Plan: resolved (3) Tobacco abuse: Code(s): Z72.0 - Tobacco use Status: Acute Assessment and Plan: Smoking cessation is encouraged. Requesting nicotine patch, ordered Plan DVT prophylaxis with SCDs GI prophylaxis not indicated Code status full code Subjective Date/time seen: 08/30/22 08:38 Interval history: 46 year old male with tobacco dependence, GERD and colon polyps p/w abdominal pain and being treated for acute diverticulitis with microperf. No overnight events noted. No chest pain or shortness of breath. No nausea, vomiting or diarrhea. No fevers or chills. Pain worsened after dinner last evening. Review of Systems Review of Systems: 12 point review of systems was assessed and was negative except as noted in the HPI Exam Narrative: General: No acute distress, alert and oriented per baseline HEENT: Atraumatic, normocephalic, mucous membranes moist CV: Regular rate and rhythm, S1, S2 Lungs: Clear to auscultation bilaterally, no rales or crackles noted, no wheezes, good air entry Abdomen: Soft, TTP LLQ, nondistended Extremities: Normal to inspection Skin: No rashes noted, no lesions or wounds seen Psych: Irritable, labile mood Objective Data Vital Signs Vital Signs: Vital Signs - 24 hr 08/29/22 15:19 08/29/22 20:22 08/29/22 20:00 Temperature 97.5 F L 98.1 F Pulse Rate 67 81 Respiratory Rate 17 20 Blood Pressure 146/80 H 141/63 H Pulse Oximetry 100 97 Oxygen Delivery Room Air 08/30/22 06:00 08/30/22 08:00 Temperature 98.1 F Pulse Rate 66 Respiratory Rate 20 Blood Pressure 142/73 H Pulse Oximetry 98 Oxygen Delivery Room Air Intake/Output Intake/Output: Intake & Output 08/27/22 08/28/22 08/29/22 08/30/22 23:59 23:59 23:59 23:59 Intake Total 3200 3810 1450 Balance 3200 3810 1450 Meds/Results Medications: Active Medications Generic Name Dose Route Start Last Admin Trade Name Freq PRN Reason Stop Dose Admin Acetaminophen 1,000 mg 08/29/22 09:30 08/30/22 06:01 Acetaminophen 500 Mg Tablet PO 1,000 mg Q6HR LUIS Administration Hydromorphone HCl 1 mg 08/28/22 23:34 08/29/22 07:32 Hydromorphone Hcl Inj (*Crx) 1 Mg/Ml Syr IV PUSH 1 mg Q3H PRN Administration Pain Rated 7-10 Metronidazole 500 mg in 100 mls @ 100 mls/hr 08/28/22 18:00 08/30/22 03:13 Flagyl 500 Mg/Iso Soln 100 Ml IVPB Infused Q8H LUIS Infusion Levofloxacin/Dextrose 750 mg in 150 mls @ 100 mls/hr 08/29/22 09:00 08/30/22 08:28 Levaquin 750 Mg/D5w 150 Ml IVPB 100 mls/hr Q24H LUIS Administration Sodium Chloride 1,000 mls @ 100 mls/hr 08/28/22 10:15 08/30/22 06:01 Normal Saline Iv IV CONT 100 mls/hr .Q10H LUIS Administration Nicotine 1 patch 08/29/22 14:20 08/29/22 15:09 Nicotine (*Pbkc) 21 Mg Patch TRANSDERM 1 patch QAM LUIS Administration Ondansetron HCl 4 mg 08/28/22 10:12 08/28/22 16:48 Ondansetron Inj 4 Mg/2 Ml Vial IV PUSH 4 mg Q4H PRN Administration Nausea Oxycodone HCl 5 mg 08/29/22 09:26 08/30/22
[2022-08-30 09:09] LABS: CRP 16.7 mg/dL (<1.0)
[2022-08-30 09:12] LABS: Procalcitonin 0.1 ng/mL
[2022-08-30] MEDS: NICOTINE (*PBKC) 21 MG PATCH 1 PATCH TRANSDERM (10:06)
--- NOTE | 2022-08-30 10:47 | PM.PNGS ---
Progress Note: A&P Assessment and Plan (1) Diverticulitis of colon with perforation: Code(s): K57.20 - Diverticulitis of large intestine with perforation and abscess without bleeding Status: Acute Assessment and Plan: WBC up to 20,000 again today. Still having a fair amount of LLQ pain and tenderness. Will back down to full liquids Continue IV Levaquin and Flagyl Dietitian educated the patient this morning on low vs high fiber diet Repeat labs tomorrow. If WBC count continues to increase or abdominal pain/exam worsens, may need to repeat CT scan of the abdomen and pelvis. (2) Tobacco abuse: Code(s): Z72.0 - Tobacco use Status: Acute Plan I have discussed the patient's case and plan of care with Dr. Lugo. Subjective Subjective Date/Time Seen: 08/30/22 10:47 Patient reports: still having pain, flatus, no bowel movement (x 2 days) and afebrile Interval history: This is a 46 yo M who was admitted for diverticulitis with microperforation. He is being treated with IV Levaquin/Flagyl. He was advanced to full liquids yesterday. WBC still remains at 20k, as it was on admission two days ago. Chart reviewed. Patient seen this morning. He is still having LLQ and suprapubic pain. This has improved some since admission and he has transitioned to oral analgesics, which he feels is keeping it controlled. He feels the pain got slightly worse yesterday after starting liquids. He slept some last night and today just has generalized malaise and feels tired. No fevers. No nausea or vomiting, but not much of an appetite. He was advanced to a low fiber diet today by the Hospitalist but had full liquids for breakfast. He admits to not eating much. No other complaints at this time. Review of Systems Review of Systems: All systems reviewed & are unremarkable except as noted in HPI and below Exam Const: General: No acute distress Orientation/consciousness: patient oriented x3 GI: Inspection: non-distended GI Palp: Yes Soft to palpation, Yes Tenderness to palpation present (GI) (very tender in LLQ/suprapubic area even with light palpation), Yes Guarding due to palpation present (GI) (LLQ) and No Rebound tenderness present Auscultation: normal bowel sounds Objective Data Vital Signs Vital Signs: Vital Signs - 24 hr 08/29/22 15:19 08/29/22 20:22 08/29/22 20:00 Temperature 97.5 F L 98.1 F Pulse Rate 67 81 Respiratory Rate 17 20 Blood Pressure 146/80 H 141/63 H Pulse Oximetry 100 97 Oxygen Delivery Room Air 08/30/22 06:00 08/30/22 08:00 Temperature 98.1 F Pulse Rate 66 Respiratory Rate 20 Blood Pressure 142/73 H Pulse Oximetry 98 Oxygen Delivery Room Air Intake/Output Intake/Output: Intake & Output 08/27/22 08/28/22 08/29/22 08/30/22 23:59 23:59 23:59 23:59 Intake Total 3200 3810 1840 Balance 3200 3810 1840 Meds/Results Medications: Active Medications Generic Name Dose Route Start Last Admin Trade Name Freq PRN Reason Stop Dose Admin Acetaminophen 1,000 mg 08/29/22 09:30 08/30/22 06:01 Acetaminophen 500 Mg Tablet PO 1,000 mg Q6HR LUIS Administration Metronidazole 500 mg in 100 mls @ 100 mls/hr 08/28/22 18:00 08/30/22 10:07 Flagyl 500 Mg/Iso Soln 100 Ml IVPB 100 mls/hr Q8H LUIS Administration Levofloxacin/Dextrose 750 mg in 150 mls @ 100 mls/hr 08/29/22 09:00 08/30/22 09:58 Levaquin 750 Mg/D5w 150 Ml IVPB Infused Q24H LUIS Infusion Nicotine 1 patch 08/29/22 14:20 08/30/22 10:06 Nicotine (*Pbkc) 21 Mg Patch TRANSDERM 1 patch QAM LUIS Administration Ondansetron HCl 4 mg 08/28/22 10:12 08/28/22 16:48 Ondansetron Inj 4 Mg/2 Ml Vial IV PUSH 4 mg Q4H PRN Administration Nausea Oxycodone HCl 5 mg 08/29/22 09:26 08/30/22 06:00 Oxycodone Hcl (*Crx) 5 Mg Tab Ir PO 5 mg Q4H PRN Administration Pain Rated 4-6 Polyethylene Glycol 17 gm 08/30/22 09:00 08/30/22 08:28 Polyethylene Glycol 3350 17 Gm P
[2022-08-30 11:56] LABS: Basophils Absolute Auto 0.1 K/mm3 (0.0-0.1); Basophils Percent Auto 0.5 % (0.2-1.2); Eosinophils Absolute Auto 0.1 K/mm3 (0-0.3); Eosinophils Percent Auto 0.9 % (0-4.4); Hematocrit 49.6 % (42.0-52.0); Hemoglobin 16.1 g/dL (14.0-18.0); Immature Granulocyte Absolute 0.09 K/mm3 (0.00-0.031); Immature Granulocyte Percent A 0.5 % (0-0.5); Lymphocytes Absolute Auto 1.47 K/mm3 (0.9-3.2); Mean Corpuscular HGB Conc 32.5 g/dl (32-36); Mean Corpuscular Hemoglobin 32.7 pg (26-34); Mean Corpuscular Volume 100.6 fl (80-100); Mean Platelet Volume 9.9 fl (7.4-10.4); Monocytes Absolute Auto 1.2 K/mm3 (0.1-0.6); Monocytes Percent Auto 7.3 % (2.6-8.5); Neutrophils Absolute Auto 13.4 K/mm3 (1.3-6.7); Neutrophils Percent Auto 81.8 % (45.5-73.1); Platelet Count Result 266 k/mm3 (150-375); Red Blood Count 4.93 M/mm3 (4.6-6.20); Red Cell Distribution Width 12.5 % (11.5-14.5); White Blood Count 16.4 K/mm3 (4.5-10.0)
[2022-08-30 14:00] VITALS: BP 136/86; PULSE 79; RESP 16; TEMP 36.9; O2SAT 98
[2022-08-30 22:00] VITALS: BP 140/83; PULSE 81; RESP 18; TEMP 36.4; O2SAT 96
[2022-08-31] MEDS: ACETAMINOPHEN 500 MG TABLET 1000 MG PO ×3 (00:22→12:50)
[2022-08-31] MEDS: oxyCODONE HCL (*CRX) 5 MG TAB IR PO ×3 (00:22→12:50)
[2022-08-31] MEDS: metroNIDAZOLE 500 MG/ISO 100ML 500 MG/100 ML BAG 100 MG IVPB ×2 (00:23→09:52)
[2022-08-31 06:00] VITALS: BP 140/81; PULSE 66; RESP 18; TEMP 36.2; O2SAT 96
[2022-08-31 06:08] LABS: Basophils Absolute Auto 0.1 K/mm3 (0.0-0.1); Basophils Percent Auto 0.5 % (0.2-1.2); Eosinophils Absolute Auto 0.2 K/mm3 (0-0.3); Eosinophils Percent Auto 1.5 % (0-4.4); Hematocrit 47.6 % (42.0-52.0); Immature Granulocyte Absolute 0.11 K/mm3 (0.00-0.031); Immature Granulocyte Percent A 0.8 % (0-0.5); Lymphocytes Absolute Auto 1.74 K/mm3 (0.9-3.2); Lymphocytes Percent Auto 12.3 % (18.3-44.2); Mean Corpuscular HGB Conc 33.6 g/dl (32-36); Mean Corpuscular Hemoglobin 33.3 pg (26-34); Mean Corpuscular Volume 99.2 fl (80-100); Mean Platelet Volume 9.8 fl (7.4-10.4); Monocytes Absolute Auto 1.2 K/mm3 (0.1-0.6); Monocytes Percent Auto 8.3 % (2.6-8.5); Neutrophils Absolute Auto 10.9 K/mm3 (1.3-6.7); Neutrophils Percent Auto 76.6 % (45.5-73.1); Platelet Count Result 282 k/mm3 (150-375); Red Cell Distribution Width 12.3 % (11.5-14.5); White Blood Count 14.2 K/mm3 (4.5-10.0)
[2022-08-31 06:28] LABS: Alanine Aminotransferase 17 U/L (6-50); Albumin Level 3.6 g/dL (3.5-5.1); Alkaline Phosphatase 67 U/L (38-126); Anion Gap 7 mmol/L (8-16); Aspartate Amino Transferase 28 U/L (17-59); Bilirubin,Total 0.8 mg/dL (0.2-1.3); Blood Urea Nitrogen 6 mg/dL (9-20); Calcium 8.3 mg/dL (8.4-10.2); Carbon Dioxide 27 mmol/L (22-30); Chloride 102 mmol/L (98-107); Estimated CRCL calculation 98 ml/min; Estimated Glomerular Filt Rate > 60; Glucose 84 mg/dL (65-110); Potassium 3.7 mmol/L (3.4-5.0); Sodium 136 mmol/L (137-145)
[2022-08-31 06:41] LABS: CRP 15.2 mg/dL (<1.0)
[2022-08-31 06:49] LABS: Procalcitonin 0.2 ng/mL
[2022-08-31] MEDS: polyethylene glycoL 3350 17 GM POWD.PACK PO (08:19)
[2022-08-31] MEDS: NICOTINE (*PBKC) 21 MG PATCH 1 PATCH TRANSDERM (08:19)
--- NOTE | 2022-08-31 08:32 | PM.PNGS ---
Progress Note: A&P Assessment and Plan (1) Diverticulitis of colon with perforation: Code(s): K57.20 - Diverticulitis of large intestine with perforation and abscess without bleeding Status: Acute Assessment and Plan: WBC trending down to 14.2 today. Clinically improving. Will advance to low fiber diet Continue IV levofloxacin and metronidazole. Could potentially discharge later today or tomorrow if continues to improve. GI was consulted by Hospitalist. (2) Tobacco abuse: Code(s): Z72.0 - Tobacco use Status: Acute Plan I have discussed the patient's case and plan of care with Dr. Lugo. Subjective Subjective Date/Time Seen: 08/31/22 08:32 Patient reports: feels better, pain is less, tolerating liquids well, flatus, bowel movement and afebrile Interval history: Patient feeling better this morning. Slept better last night. He has more of an appetite this morning. He reports eating more of the full liquids yesterday. Has a small BM yesterday evening. No nausea or vomiting. CBC repeated yesterday afternoon and 16k, and this morning 14k. Exam Const: General: comfortable and no acute distress Orientation/consciousness: patient oriented x3 GI: Inspection: non-distended GI Palp: Yes Soft to palpation, Yes Tenderness to palpation present (GI) (elevator tender in the LLQ, slightly improved), Yes Guarding due to palpation present (GI) (voluntary guarding with palpation LLQ) and No Rebound tenderness present Auscultation: normal bowel sounds Objective Data Vital Signs Vital Signs: Vital Signs - 24 hr 08/30/22 14:00 08/30/22 20:00 08/30/22 22:00 Temperature 98.4 F 97.5 F L Pulse Rate 79 81 Respiratory Rate 16 18 Blood Pressure 136/86 140/83 Pulse Oximetry 98 96 Oxygen Delivery Room Air 08/31/22 06:00 08/31/22 08:20 Temperature 97.1 F L Pulse Rate 66 Respiratory Rate 18 Blood Pressure 140/81 Pulse Oximetry 96 Oxygen Delivery Room Air Intake/Output Intake/Output: Intake & Output 08/28/22 08/29/22 08/30/22 08/31/22 23:59 23:59 23:59 23:59 Intake Total 3200 3810 2900 600 Balance 3200 3810 2900 600 Meds/Results Medications: Active Medications Generic Name Dose Route Start Last Admin Trade Name Freq PRN Reason Stop Dose Admin Acetaminophen 1,000 mg 08/30/22 18:00 08/31/22 04:57 Acetaminophen 500 Mg Tablet PO 1,000 mg Q6HR LUIS Administration Metronidazole 500 mg in 100 mls @ 100 mls/hr 08/28/22 18:00 08/31/22 01:23 Flagyl 500 Mg/Iso Soln 100 Ml IVPB Infused Q8H LUIS Infusion Levofloxacin/Dextrose 750 mg in 150 mls @ 100 mls/hr 08/29/22 09:00 08/31/22 08:20 Levaquin 750 Mg/D5w 150 Ml IVPB 100 mls/hr Q24H LUIS Administration Nicotine 1 patch 08/29/22 14:20 08/31/22 08:19 Nicotine (*Pbkc) 21 Mg Patch TRANSDERM 1 patch QAM LUIS Administration Ondansetron HCl 4 mg 08/28/22 10:12 08/28/22 16:48 Ondansetron Inj 4 Mg/2 Ml Vial IV PUSH 4 mg Q4H PRN Administration Nausea Oxycodone HCl 2.5 mg 08/30/22 12:52 Oxycodone Hcl (*Crx) 2.5 Mg Tab Ir PO Q4H PRN Pain Rated 4-6 Oxycodone HCl 5 mg 08/30/22 13:08 08/31/22 04:57 Oxycodone Hcl (*Crx) 5 Mg Tab Ir PO 5 mg Q4H PRN Administration Pain Rated 4-6 Polyethylene Glycol 17 gm 08/30/22 09:00 08/31/22 08:19 Polyethylene Glycol 3350 17 Gm Powd.Pack PO 17 gm QAM LUIS Administration Radiology Results: ITS Impressions Abdomen/Pelvis CT 08/28/22 09:43 IMPRESSION: 1. Perforated diverticulitis of the distal descending/proximal sigmoid colon without abscess. Labs Labs: Laboratory Results - last 24 hr 08/30/22 08/30/22 08/31/22 05:49 11:46 05:53 WBC 16.4 H 14.2 H RBC 4.93 4.80 Hgb 16.1 16.0 Hct 49.6 47.6 MCV 100.6 H 99.2 MCH 32.7 33.3 MCHC 32.5 33.6 RDW 12.5 12.3 Plt Count 266 282 MPV 9.9 9.8 Immature Gran % (Auto) 0.5 0.8 H Neut % (Auto) 81.8 H 76.6 H Lymph
[2022-08-31 14:27] VITALS: BP 122/85; PULSE 72; RESP 16; TEMP 36.9; O2SAT 98
[2022-08-31] MEDS: metroNIDAZOLE 250 MG TABLET 500 MG PO (15:27)
--- NOTE | 2022-08-31 16:20 | WPDGICN ---
Assessment and Plan Assessment and plan (1) LLQ abdominal pain: Code(s): R10.32 - Left lower quadrant pain Status: Acute Assessment and Plan: Patient with severe left lower quadrant pain. Most consistent with diverticulitis. This appears to correlate with CT scan imaging and findings. Micro perforation of diverticular disease is suggested by imaging. Colonoscopy a year and a half ago failed to identify any significant diverticular disease although only 1 diverticulum would be necessary to cause this. At present patient reports improvement with broad-spectrum antibiotic coverage. He reports this pain currently is very similar to previous pains that he has had when imaging was not so distinct. Plan to continue antibiotics now. Ultimately add high fiber supplementation. If pain persists follow-up colonoscopy at a later date may be considered. This should not be performed while he has acute pain such as this as it could exacerbate his diverticular disease. (2) Diverticulitis of colon with perforation: Code(s): K57.20 - Diverticulitis of large intestine with perforation and abscess without bleeding Status: Acute GI Consult Note Consult date/time: 08/31/22 16:20 Reason for consult: Left lower quadrant abdominal pain. HPI: Geoffrey Marshall is a 46 year old male I am asked see at the request the hospitalist service because of diverticulitis. Patient states he has had intermittent left lower quadrant pain for some time. He states pain began on Tuesday and was much more severe than typical. CT scan imaging at the time of presentation suggested diverticulitis with micro perforation. Patient now on IV antibiotics. He has had gradual improvement since admission hospital. He remains quite tender but is starting to have bowel movements and feels that pain is improved. Patient states this pain is very similar to pain he has had over the last several years however much more intense and lasting longer. Previous imaging studies have shown no indication for diverticulosis. Colonoscopy performed in November of 2020 revealed benign polyps no obvious diverticular disease noted at that time. He did have an EGD that was similarly unremarkable. Patient has been treated variously with mesalamine other antispasmodic agents in the interim. Review of Systems Review of Systems: review of systems noncontributory. [facility] Past Medical History Medical History (Updated 08/31/22 @ 16:23 by Eze De La Cruz MD) Gastroesophageal reflux Tobacco abuse Surgical History Surgical History (Updated 08/28/22 @ 13:49 by Amina Gasca PA-C) History of colonoscopy with polypectomy (11/2020) Benign sigmoid colon polyp, internal hemorrhoids. History of esophagogastroduodenoscopy (11/2020) Distal esophagitis consistent with GE reflux. History of laparoscopic cholecystectomy Family History Family History (Updated 08/28/22 @ 20:47 by Amina Gasca PA-C) Other Family history non-contributory Social History Social History (Updated 08/28/22 @ 20:48 by Amina Gasca PA-C) Social History: Surrogate medical decision maker: Sherrie Carson, friend. Code status: Full code. Smoking packs per day: 1.5 Smoking cigarettes per day: 30.0 Smoking status: Current every day smoker Tobacco type: cigarettes Alcohol intake: current Drinks per week: 4 Alcohol use details: Beer Substance use: never Substance use type: does not use Lack of Transportation: No Lack of Food: Never True Current Housing: I Have Housing Concerned About Future Housing: No Difficulty Paying Gas/Electric Bills: No Difficulty Paying for Meds: No Currently Unemployed: No Education: High School Diploma/GED Difficulty w/ Childcare or Family Care: No Additional living arrangements comments: Lives in [place]. Spiritual care concerns: No Meds Home Medications and Allergies Home Medications
--- NOTE | 2022-09-08 08:45 | PM.DS ---
DS: Admitting Diagnosis Discharge Date 08/31/22 Admitting Diagnosis abdominal pain DS: Discharge Diagnosis Discharge Diagnosis (1) Diverticulitis of colon with perforation: Code(s): K57.20 - Diverticulitis of large intestine with perforation and abscess without bleeding Status: Acute Assessment and Plan: CT shows evidence of diverticulitis with micro perforation and Dr. Lugo recommends conservative management initially to include bowel rest and IV antibiotics (levofloxacin and metronidazole). Analgesics and antiemetics available as needed. Long history of recurrent abdominal pain, concerning for recurrent diverticulitis episodes and daily bouts of diarrhea. Prior UGI/SBFT concerning for malabsorption syndrome. 08/30: Pain worsened, cont FLD for now, recheck CBC this afternoon much improved, CRP, PCT checked today, recheck tomorrow (2) Dehydration: Code(s): E86.0 - Dehydration Status: Acute Assessment and Plan: resolved (3) Tobacco abuse: Code(s): Z72.0 - Tobacco use Status: Acute Assessment and Plan: Smoking cessation is encouraged. Requesting nicotine patch, ordered Plan DVT prophylaxis with SCDs GI prophylaxis not indicated Code status full code DS: Summary Hospital Course Hospital Course: 46 year old male with tobacco dependence, GERD and colon polyps p/w abdominal pain and being treated for acute diverticulitis with microperf. General surgery was consulted and recommended advancing diet as tolerated as well as IV antibiotic therapy with Levaquin and Flagyl. Symptoms resolved, p.o. intake tolerated. Of note, patient reported long history of digestive issues including daily diarrhea concerning for malabsorption, being worked up as an outpatient. GI consult was requested as patient needs GI follow-up outpatient. GI here thought symptoms were likely secondary to diverticulitis. Patient was referred to outpatient GI for workup for irritable bowel syndrome. See above and med rec for details. Time Spent with Patient Time attestation: Total time spent providing and/or coordinating discharge services: Exam Narrative: General: No acute distress, alert and oriented per baseline HEENT: Atraumatic, normocephalic, mucous membranes moist CV: Regular rate and rhythm, S1, S2 Lungs: Clear to auscultation bilaterally, no rales or crackles noted, no wheezes, good air entry Abdomen: Soft, TTP LLQ, nondistended Extremities: Normal to inspection Skin: No rashes noted, no lesions or wounds seen Psych: Irritable, labile mood Discharge Plan Discharge Attending physician on discharge: Shadia Lopez Consulting providers: Jone Lugo; Eze De La Cruz; Colin Candelario; Amina Gasca; Jazzmine Eng Discharging Clinician: Shadia Lopez Patient Disposition: Home, Self-Care Activity: as tolerated Diet: high fiber Discharge Instructions: Call [facility] to make an appointment Dr Sury Vu MD at [phone]. [address] [place] [address] Take your antibiotics as prescribed. Take the Bentyl as needed with food. This is a medication that can help with cramping and potentially the diarrhea the ER having if you take it with lunch and dinner. You may also take it before better 1st thing in the morning if you are having symptoms. If you have difficulty getting in with Dr. Moreland, he can always request the 1st available physician to see you. All of the doctors at that practice seemed to be knowledgeable and could likely help you. Patient Instructions: Antibiotic Form, How to Stop Smoking (DC) Stand Alone Forms: General Discharge Information Follow-up/Referrals: Sury Vu [Other] Kimberly Forde PA-C [Primary Care Provider] - Discharge Medications: New polyethylene glycol 3350 [Miralax] 17 gram Pow
== END 2022-08-31 17:00 | disposition home or self-care (01) | DRG 392 ==
LOC: ANHED 10:11 → ANH3MED 10:48
PROVIDERS: Physician Assistant; Admitting Provider Family Medicine; Emergency Provider Emergency Medicine; PCP Physician Assistant Medical; Visit Provider Student in an Organized Health Care Education/Training Program
DX: K57.20 Diverticulitis of large intestine with perforation and abscess without bleeding (principal); K21.9 Gastro-esophageal reflux disease without esophagitis; E86.0 Dehydration; F17.210 Nicotine dependence, cigarettes, uncomplicated; Z90.49 Acquired absence of other specified parts of digestive tract
CPT/HCPCS: 36415; 74177; 80053; 81001; 83690; 83735; 84145; 85025; 85027; 86140; 96361; 96374; 96375; 99285; A9270; J1170; J1956; J2405; J7030; Q9967

== ENCOUNTER 2023-08-08 13:06 | Outpatient (CLI) | payer OTHER, SELFPAY ==
--- NOTE | ~2023-08-08 | CT_ITS ---
Non-contrast CT scan of the Abdomen and Pelvis Clinical indication: Abdominal pain Technique: 2.5 mm axial scans were obtained through the abdomen and pelvis without intravenous or or al contrast. Dose reduction technique was used on this scan by utilizing automated exposure control a nd iterative reconstruction technique. The dose-length product (DLP) was 366.53 mGy-cm. COMPARISON: 08/28/2022 Findings: Images through the lung bases reveal no abnormalities. There is no evidence of renal or ureteral calculi. The kidneys and the ureters are nondilated. The liver, spleen, pancreas, and adrenals appear normal. Cholecystectomy clips are present. There are atherosclerotic calcifications of the aorta. There is no evidence of bowel obstruction. There is minimal wall thickening and minimal adjacent infl ammatory change at the proximal sigmoid colon, suggestive of mild acute epididymitis. No abscess or f ree air. Images through the pelvis were performed. There is no evidence of ascites or lymphadenopathy. Urinary bladder unremarkable. No pelvic mass seen. Impression: Probable very mild acute diverticulitis of the sigmoid colon. Reviewed, dictated and finalized at [facility]. Impression: Probable very mild acute diverticulitis of the sigmoid colon.
--- NOTE | ~2023-08-08 | US_ITS ---
US scrotum doppler INDICATION: Testicular pain TECHNIQUE: Testicular sonogram utilizing grayscale and color Doppler FINDINGS: The testes are normal in size and appearance. No focal lesions are seen. The right testes measures 5.1 x 2.5 x 3.5 cm centimeters, and the left testis measures 5.2 x 2.6 x 3.6 cm cm. There is normal vascular flow to both testes. The right and left epididymides appear normal. There is a small right hydrocele. IMPRESSION: 1. Small right hydrocele. Reviewed, dictated and finalized at location B. IMPRESSION: 1. Small right hydrocele.
== END 2023-08-08 13:07 | disposition home or self-care (01) ==
PROVIDERS: PCP Physician Assistant Medical; Visit Provider Urology
DX: R10.84 Generalized abdominal pain (principal); N43.3 Hydrocele, unspecified
CPT/HCPCS: 74176; 76870; 93976